=== PATIENT | male | born 1975 | race Caucasian/White ===

== ENCOUNTER 2017-10-01 15:50 | Observation (INO) | payer OTHER ==
[2017-10-01] MEDS ORDERED: ASPIRIN 325 MG TABLET PO ONE (15:55)
[2017-10-01] MEDS ORDERED: ASPIRIN 325 MG TABLET ONE (16:00)
--- NOTE | 2017-10-01 16:04 | PDOC ---
Rapid Medical Evaluation Time Seen by Provider: 10/01/17 15:52 Medical Evaluation: Allergies Allergy/AdvReac Type Severity Reaction Status Date / Time No Known Allergies Allergy Verified 10/01/17 15:52 10/01/17 15:53 I have performed a brief in-person evaluation of this patient. The patient presents with a chief complaint of: chest pain Pertinent physical exam findings: EKG with 2mm ST elevations noted in II, II and AVF, pronounced TWI noted in V1-V5 I have ordered the following:EKG, cardiac enzymes, cbc/cmp/coags,and ASA. Attending Luanne notified, pt immediately sent to the main ED. The patient will proceed to the ED for further evaluation. 10/01/17 15:56
--- NOTE | 2017-10-01 16:19 | PDOC ---
Attending Attestation - Resident Resident Name: Alma Haas - ED Attending Attestation I have performed the following: I have examined & evaluated the patient, The case was reviewed & discussed with the resident, I agree w/resident's findings & plan, Exceptions are as noted - HPI HPI: 10/01/17 16:18 42y M no pmhx sent by cardiology for evaluation of chest pain. Pt is new to Dr. Young, but saw deep TWI in the anterior/inferior leads, and sent the pt to the ED for evlauation. On arrival the pt had an EKG that showed the same changes, pt denies being in pain. 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 pt denies any diaphoresis, n/v. on arrival the pts EKG noted for deep TWI in anterior/lateral leads, read by machine as stemi, howver without any pain, and based on pts onrmal vitals/ clinical findings, suspect this may be LVH wiht strain patter rather than a STEMI. Case dw dr. Young - agree this is probably strain rather than stemi - posible underlying cardiomyopathy on exam pt well appearign in no distresss GENERAL: The patient is awake, alert, and fully oriented, Nontoxic - in no acute distress. HEAD: Normocephalic, atraumatic. EYES: extraocular movements intact, sclera anicteric, conjunctiva clear. ENT: Normal voice, Moist mucous membranes. NECK: Normal range of motion, supple LUNGS: Breath sounds equal, clear to auscultation bilaterally. No wheezes, no rhonchi, no rales. HEART: Regular rate and rhythm, normal S1 and S2 without murmur, rub or gallop. ABDOMEN: Soft, nontender, normoactive bowel sounds. No guarding, no rebound. . No CVA tenderness EXTREMITIES: Normal range of motion, no edema. No clubbing or cyanosis. No cords, erythema, or tenderness. NEUROLOGICAL: No facial assymetry, Normal speech, PSYCH: Normal mood, normal affect. SKIN: Warm, Dry, normal turgor, will plan for trops, obs/echo will give ASA - Physicial Exam PE: 10/05/17 07:57 se eabove - Medical Decision Making 10/05/17 07:57 se above Heart Score/ECG Review - ECG Impressions Comment:: 10/01/17 16:48 Twelve-lead EKG was performed and reviewed by me. There is normal sinus rhythm with a normal rate. Rate of 65 LVH with strain pattern qtc interval of 513 no old ekgs for comparison
[2017-10-01 16:23] LABS: HEMATOCRIT 47.2 % (35.4-49); HEMOGLOBIN 16.3 GM/dL (11.7-16.9); MCH 31.5 pg (25.7-33.7); MCHC 34.5 g/dl (32.0-35.9); MEAN CELL VOLUME 91.2 fl (80-96); MEAN PLT VOLUME 9.1 fl (7.5-11.1); PLATELET COUNT 229 K/MM3 (134-434); RBC 5.18 M/mm3 (4.00-5.60); RDW 12.7 % (11.9-15.9); WHITE BLOOD COUNT 7.9 K/mm3 (4.0-10.0)
--- NOTE | 2017-10-01 16:24 | PDOC ---
History of Present Illness - General Stated Complaint: ABNORMAL EKG Time Seen by Provider: 10/01/17 15:52 History Source: Patient, Care Provider Exam Limitations: No Limitations - History of Present Illness Initial Comments: This is a 42 YOM who p/w one month of intermittent substernal chest discomfort which feels like something is sitting on his chest and squeezing his chest. He currently has no pain and states that his most recent episode resolved around the time he arrived to the ED. He was being seen at his PCP's office (where he is just being established as a patient) and got an EKG which looked concerning, so the PCP sent him in to the ED. He denies any radiation to the shoulder, arm, neck, jaw, abdomen, or back. He also denies nausea, vomiting, SOB, diaphoresis, AMAYA, lightheadedness, or other symptoms. 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 Prior to this month, he had never had these symptoms before. Past History - Past Medical History Allergies/Adverse Reactions: Allergies Allergy/AdvReac Type Severity Reaction Status Date / Time No Known Allergies Allergy Verified 10/01/17 15:52 Home Medications: Ambulatory Orders NK [No Known Home Medication] 10/01/17 - Suicide/Smoking/Psychosocial Hx Smoking History: Unknown if ever smoked Review of Systems - Review of Systems Able to Perform ROS?: Yes Constitutional: No: Chills, Fever, Unexplained wgt Loss HEENTM: No: Nose Congestion, Throat Pain Respiratory: No: Cough, Shortness of Breath Cardiac (ROS): Yes: Chest Pain. No: Palpitations ABD/GI: No: Constipated, Diarrhea, Nausea, Vomiting : No: Burning, Dysuria Musculoskeletal: No: Back Pain, Neck Pain Integumentary: No: Bruising, Rash Neurological: No: Headache, Numbness, Tingling, Weakness, Dizziness Endocrine: No: Unexplained Weight Gain, Unexplained Weight Loss *Physical Exam - Vital Signs Last Vital Signs Temp Pulse Resp BP Pulse Ox 98.1 F 63 18 114/57 98 10/02/17 14:00 10/02/17 14:00 10/02/17 09:31 10/02/17 14:00 10/02/17 09:31 - Physical Exam General Appearance: Yes: Nourished, Appropriately Dressed, Other (nontoxic and well appearing adult male in no distress, appears comfortable, [place]an-speaking , answering questions appropriately). No: Apparent Distress HEENT: positive: EOMI, Normal Voice, Hearing Grossly Normal. negative: Scleral Icterus (R), Scleral Icterus (L), Nasal Congestion Neck: positive: Trachea midline, Supple. negative: Tender, Rigid Respiratory/Chest: positive: Lungs Clear, Normal Breath Sounds. negative: Respiratory Distress, Crackles, Rhonchi, Stridor, Wheezing Cardiovascular: positive: Regular Rhythm, Regular Rate. negative: Murmur Gastrointestinal/Abdominal: positive: Normal Bowel Sounds, Soft. negative: Tender, Organomegaly, Pulsatile Mass, Guarding Musculoskeletal: positive: Normal Inspection. negative: Decreased Range of Motion, Vertebral Tenderness Extremity: positive: Normal Capillary Refill, Normal Inspection, Normal Range of Motion. negative: Tender, Cyanosis Integumentary: positive: Normal Color, Dry, Warm. negative: Erythema, Rash, Bruising Neurologic: positive: bindery operator II-XII NML intact, Fully Oriented, Alert, Normal Mood/ Affect, Normal Response, Motor Strength 5/5 Heart Score/ECG Review - History History: Moderately suspicious - Electrocardiogram EKG: Significant ST-depression - Age Age: </= 45 - Risk Factors Based on the list above the patient has:: No risk factors known - Troponin Troponin: </= normal limit - Score Heart Score - Total: 3 #1 Sinus rhythm, rate of 65, normal axis, ST depressions in I, aVL, V5-V6, and biphasic ST-T changes in V1-V4, findings concerning for Wellen's syndrome versus early repolarization versus strain pattern, QTc is 513 (prolonged). ED Treatment Course - LABORATORY CBC & Chemistry Diagram: 10/01/17 16:00 10/01/17 16:00 - ADDITIONAL ORDERS Additional order review: 10/01/17 16:00 RBC 5.18 MCV 91.2 MCHC 34.5 RDW 12.7 MPV 9.1 - Medications Given in the ED: ED Medications Discontinued Medications Generic Name Dose Route Start Last Admin Trade Name Freq PRN Reason Stop Dose Admin Aspirin 325 mg 10/01/17 15:55 10/01/17 16:03 Asa - PO 10/01/17 15:56 325 mg ONCE ONE Administration Medical Decision Making - Medical Decision Making 10/01/17 17:26 Adult male Pt p/w chest pain. Initial Vital Signs Temp Pulse Resp BP Pulse Ox 98 F 64 16 125/74 98 10/01/17 15:53 10/01/17 15:53 10/01/17 15:53 10/01/17 15:53 10/01/17 15:53 Exam: Well appearing, nontoxic, comfortable, normal heart/lung/abdominal/neuro exams. DDX IBNLT: ACS, angina, cardiomyopathy, pericarditis, tamponade, aortic dissection, AAA, PTX, PE, esophageal tear, esophagitis (e.g. pill, infectious), esophageal stricture, esophageal FB, gastritis, PUD, pancreatitis, cholecystitis , cholangitis, colitis, bowel perforation, PNA/bronchitis, pleurisy, pleuritis, MVP, pulmonary HTN, musculoskeletal, panic/anxiety, etc. W/U ordered: CBCD CMP Mg Phos Lipase Troponin CK CKMB Coags T&S Blood gas UA UCx EKG CXR. TX ordered: monitor, ASA 324 EKG: As noted in ECG Review section. CXR: NADP Laboratory Tests 10/01/17 10/01/17 10/01/17 16:00 16:00 16:00 WBC 7.9 RBC 5.18 Hgb 16.3 Hct 47.2 MCV 91.2 MCH 31.5 MCHC 34.5 RDW 12.7 Plt Count 229 MPV 9.1 PT with INR 11.30 INR 1.00 Sodium 141 Potassium 3.9 Chloride 107 Carbon Dioxide 27 Anion Gap 7 L BUN 10 Creatinine 0.9 Creat Clearance w eGFR > 60 Random Glucose 95 Calcium 8.7 Creatine Kinase 117 Troponin I < 0.02 Reassessment: Benign; patient continues to feel well. The Pt is unsafe for discharge at this time. They require further hospital observation, workup, and treatment. Microblog sent to [facility] for admission. Spoke with Yuejeison, in agreement Pt to be admitted to to: Telemetry Decision to Admit order placed to covering attending Consult order placed to cardiology on-call provider. *DC/Admit/Observation/Transfer Diagnosis at time of Disposition: Abnormal EKG Chest pain Qualifiers: Chest pain type: unspecified Qualified Code(s): R07.9 - Chest pain, unspecified - Discharge Dispostion Condition at time of disposition: Guarded Decision to Admit order: Yes - Referrals - Patient Instructions - Post Discharge Activity
[2017-10-01 16:46] LABS: PROTHROMBIN TIME (PATIENT) 11.3 SEC (9.7-13.0)
[2017-10-01 16:56] LABS: ANION GAP 7 (8-16); BLOOD UREA NITROGEN 10 mg/dL (7-18); CALCIUM 8.7 mg/dL (8.5-10.1); CHLORIDE 107 mmol/L (98-107); CO2 27 mmol/L (21-32); CREATININE 0.9 mg/dL (0.7-1.3); GLUCOSE,RANDOM 95 mg/dL (74-106); POTASSIUM 3.9 mmol/L (3.5-5.1); SODIUM 141 mmol/L (136-145)
--- NOTE | 2017-10-01 19:06 | PN ---
Progress Note (short form) - Note Progress Note: I sent Mr. Cardenas to ER for further evaluation. He is a 42 M with no PMH who walked into my office to be evaluated for 2 weeks of exertional dyspnea with associated palpitations. His ECG (no prior for comparison) was markedly abnl w/ TWI across precordium, I , avL. He was chest pain free. Suspect possible cardiomyopathy, r/o arrhythmia. Possible ischemia, though unlikely given age and no risk factors. 1. Tele, Aspirin 2. Echo 3. Cardiac enzymes. 4. Ischemic evaluation prior to discharge. A full office consult was written; I will see him in follow up tomorrow.
--- NOTE | 2017-10-01 22:16 | HP ---
Admitting History and Physical - Primary Care Physician PCP: Chente Jaramillo - Admission Chief Complaint: abnormal ekg History of Present Illness: 42y M no pmhx sent by cardiology for evaluation of chest pain. Pt is new to Dr. Young, but saw deep TWI in the anterior/inferior leads, and sent the pt to the ED for evlauation. On arrival the pt had an EKG that showed the same changes, pt denies being in pain. 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 pt denies any diaphoresis, n/v. - Smoking History Smoking history: Unknown if ever smoked Home Medications - Allergies Allergies/Adverse Reactions: Allergies Allergy/AdvReac Type Severity Reaction Status Date / Time No Known Allergies Allergy Verified 10/01/17 15:52 - Home Medications Home Medications: Ambulatory Orders NK [No Known Home Medication] 10/01/17 Physical Examination Vital Signs: Vital Signs Temperature 98.2 F 10/01/17 19:45 Pulse Rate 89 10/01/17 19:45 Respiratory Rate 19 10/01/17 19:45 Blood Pressure 126/78 10/01/17 19:45 O2 Sat by Pulse Oximetry (%) 98 10/01/17 18:49 Constitutional: Yes: No Distress HENT: Yes: Atraumatic Neck: Yes: Supple Cardiovascular: Yes: Regular Rate and Rhythm Respiratory: Yes: CTA Bilaterally Gastrointestinal: Yes: Normal Bowel Sounds Extremities: Yes: WNL Edema: No Peripheral Pulses WNL: Yes Neurological: Yes: Alert, Oriented Labs: CBC, BMP 10/01/17 16:00 10/01/17 16:00 Problem List - Problems (1) Abnormal EKG Assessment/Plan: tele monitoring fu cardiac enzymes repeat ekg in am if needed Code(s): R94.31 - ABNORMAL ELECTROCARDIOGRAM [ECG] [EKG] (2) Chest pain Assessment/Plan: not currently fu cardiac enzymes cardiologuy on board echo stress test Code(s): R07.9 - CHEST PAIN, UNSPECIFIED Qualifiers: Chest pain type: unspecified Qualified Code(s): R07.9 - Chest pain, unspecified Assessment/Plan Laboratory Tests 10/01/17 10/01/17 10/01/17 16:00 16:00 16:00 WBC 7.9 RBC 5.18 Hgb 16.3 Hct 47.2 MCV 91.2 MCH 31.5 MCHC 34.5 RDW 12.7 Plt Count 229 MPV 9.1 PT with INR 11.30 INR 1.00 Sodium 141 Potassium 3.9 Chloride 107 Carbon Dioxide 27 Anion Gap 7 L BUN 10 Creatinine 0.9 Creat Clearance w eGFR > 60 Random Glucose 95 Calcium 8.7 Creatine Kinase 117 Troponin I < 0.02 10/01/17 20:35 WBC RBC Hgb Hct MCV MCH MCHC RDW Plt Count MPV PT with INR INR Sodium Potassium Chloride Carbon Dioxide Anion Gap BUN Creatinine Creat Clearance w eGFR Random Glucose Calcium Creatine Kinase 92 Troponin I < 0.02 Active Medications Generic Name Dose Route Start Last Admin Trade Name Freq PRN Reason Stop Dose Admin Aspirin 81 mg 10/02/17 10:00 Asa - PO DAILY ROSALIA
[2017-10-01 23:16] VITALS: BMI 25.4
--- NOTE | 2017-10-02 08:01 | PN ---
Progress Note, Physician Chief Complaint: Seen and examined, no acute distress TnI negative x 3 Tele: Sinus, sinus martin with NSST changes Denies CP or SOB - Current Medication List Current Medications: Active Medications Aspirin (Asa -) 81 mg PO DAILY ROSALIA - Objective Vital Signs: Vital Signs Temperature 98.4 F 10/02/17 05:49 Pulse Rate 57 L 10/02/17 05:49 Respiratory Rate 18 10/02/17 05:49 Blood Pressure 108/49 10/02/17 05:49 O2 Sat by Pulse Oximetry (%) 98 10/01/17 18:49 Constitutional: Yes: No Distress Eyes: Yes: Conjunctiva Clear Cardiovascular: Yes: Regular Rate and Rhythm Respiratory: Yes: CTA Bilaterally Gastrointestinal: Yes: Soft Edema: No Neurological: Yes: Alert, Oriented ...Motor Strength: WNL Labs: CBC, BMP 10/01/17 16:00 10/01/17 16:00 INR, PTT INR 1.00 (0.82-1.09) 10/01/17 16:00 - ....Imaging EKG: Image Reviewed Assessment/Plan IMP: CAZARES with associated palpitations x 2 weeks Markedly abnl baseline ECG The differential dx includes primary cardiomyopathy w/ associated arrhythmia; chronic cardiomyopathy with elevated EDP causing CAZARES; primary arrhythmia with or without associated cardiomyopathy, myocarditis unlikely and lastly ischemia also less likely give young age and lack of risk factors. Rare entities such as anomalous coronary artery and myocardial bridge should be considered. REC: 1. ASA 2. Echo today for EF assessment 3. Tele 4. Stress MIBI (pharm) prior to d/c
[2017-10-02] MEDS: ASPIRIN 81 MG CHEWABLE TABLETS PO SCH (11:56)
--- NOTE | 2017-10-02 16:15 | PN ---
Progress Note, Physician History of Present Illness: no cp - Current Medication List Current Medications: Active Medications Aspirin (Asa -) 81 mg PO DAILY ROSALIA Last Admin: 10/02/17 11:56 Dose: 81 mg - Objective Vital Signs: Vital Signs Temperature 98.1 F 10/02/17 14:00 Pulse Rate 63 10/02/17 14:00 Respiratory Rate 18 10/02/17 09:31 Blood Pressure 114/57 10/02/17 14:00 O2 Sat by Pulse Oximetry (%) 98 10/02/17 09:31 Constitutional: Yes: No Distress HENT: Yes: Atraumatic Neck: Yes: Supple Cardiovascular: Yes: Regular Rate and Rhythm Respiratory: Yes: CTA Bilaterally Gastrointestinal: Yes: Normal Bowel Sounds Extremities: Yes: WNL Neurological: Yes: Alert, Oriented Labs: CBC, BMP 10/01/17 16:00 10/01/17 16:00 INR, PTT INR 1.00 (0.82-1.09) 10/01/17 16:00 Problem List - Problems (1) Abnormal EKG Assessment/Plan: troponins negative echo done for stress mibi sandi Code(s): R94.31 - ABNORMAL ELECTROCARDIOGRAM [ECG] [EKG] (2) Chest pain Assessment/Plan: not currently fu cardiac enzymes cardiologuy on board echo stress test Code(s): R07.9 - CHEST PAIN, UNSPECIFIED Qualifiers: Chest pain type: unspecified Qualified Code(s): R07.9 - Chest pain, unspecified
--- NOTE | 2017-10-03 08:12 | PN ---
Progress Note, Physician Chief Complaint: Echo with mild diastolic dysfx otherwise normal TELE: NSR, NSST changes. No arrhythmias - Current Medication List Current Medications: Active Medications Aspirin (Asa -) 81 mg PO DAILY ROSALIA Last Admin: 10/02/17 11:56 Dose: 81 mg - Objective Vital Signs: Vital Signs Temperature 98.1 F 10/03/17 06:00 Pulse Rate 64 10/03/17 06:00 Respiratory Rate 20 10/03/17 06:00 Blood Pressure 100/54 10/03/17 06:00 O2 Sat by Pulse Oximetry (%) 98 10/02/17 21:00 Constitutional: Yes: No Distress, Calm Eyes: Yes: Conjunctiva Clear Cardiovascular: Yes: Regular Rate and Rhythm Respiratory: Yes: CTA Bilaterally Gastrointestinal: Yes: Soft Edema: No Neurological: Yes: Alert, Oriented ...Motor Strength: WNL Labs: CBC, BMP 10/01/17 16:00 10/01/17 16:00 INR, PTT INR 1.00 (0.82-1.09) 10/01/17 16:00 - ....Imaging EKG: Image Reviewed Assessment/Plan IMP: CAZARES with associated palpitations x 2 weeks Markedly abnl baseline ECG REC: 1. ASA 2. Echo w/ normal EF, no evidence of ARVD or non-compaction. 3. Tele unrevealing thus far 4. Stress MIBI (pharm) prior to d/c- to be completed today.
[2017-10-03] MEDS ORDERED: REGADENOSON 0.4 MG/5 ML PRE-FILLED SYRINGE IVPUSH ONE ×2 (09:42→10:00)
[2017-10-03] MEDS: ASPIRIN 81 MG CHEWABLE TABLETS PO SCH (12:39)
--- NOTE | 2017-10-03 13:05 | EKG ---
Test Reason : Blood Pressure : / mmHG Vent. Rate : 065 BPM Atrial Rate : 065 BPM P-R Int : 158 ms QRS Dur : 102 ms QT Int : 494 ms P-R-T Axes : 012 -22 132 degrees QTc Int : 513 ms NORMAL SINUS RHYTHM ST ELEVATION CONSIDER INFERIOR INJURY OR ACUTE INFARCT PROLONGED QT ACUTE PA / STEMI Consider right ventricular involvement in acute inferior infarct ABNORMAL ECG WHEN COMPARED WITH ECG OF 01-OCT-2017 16:01, NO SIGNIFICANT CHANGE WAS FOUND Confirmed by LORRAINE SOUTH, THOMPSON ([id number]) on 10/03/2017 1:04:57 PM Referred By: Confirmed By:THOMPSON PETERS MD
--- NOTE | 2017-10-03 17:06 | PN ---
Progress Note, Physician History of Present Illness: no cp - Current Medication List Current Medications: Active Medications Aspirin (Asa -) 81 mg PO DAILY ROSALIA Last Admin: 10/03/17 12:39 Dose: 81 mg - Objective Vital Signs: Vital Signs Temperature 98.0 F 10/03/17 14:00 Pulse Rate 75 10/03/17 14:00 Respiratory Rate 18 10/03/17 10:00 Blood Pressure 117/47 10/03/17 14:00 O2 Sat by Pulse Oximetry (%) 99 10/03/17 10:00 Constitutional: Yes: No Distress HENT: Yes: Atraumatic Neck: Yes: Supple Cardiovascular: Yes: Regular Rate and Rhythm Respiratory: Yes: CTA Bilaterally Gastrointestinal: Yes: Normal Bowel Sounds Extremities: Yes: WNL Neurological: Yes: Alert, Oriented Labs: CBC, BMP 10/01/17 16:00 10/01/17 16:00 INR, PTT INR 1.00 (0.82-1.09) 10/01/17 16:00 Problem List - Problems (1) Abnormal EKG Assessment/Plan: troponins negative echo done stress test done, report reviewed plan per cardiology Code(s): R94.31 - ABNORMAL ELECTROCARDIOGRAM [ECG] [EKG] (2) Chest pain Assessment/Plan: resolved Code(s): R07.9 - CHEST PAIN, UNSPECIFIED Qualifiers: Chest pain type: unspecified Qualified Code(s): R07.9 - Chest pain, unspecified
--- NOTE | 2017-10-04 08:14 | PN ---
Progress Note, Physician Chief Complaint: Nuclear stress with no ischemia but low normal EF and borderline TID ratio. As patient has exertional symptoms of CAZARES and chest burning, he needs further diagnostic studies to rule out ischemia or other coronary anomaly - Current Medication List Current Medications: Active Medications Aspirin (Asa -) 81 mg PO DAILY ROSALIA Last Admin: 10/03/17 12:39 Dose: 81 mg - Objective Vital Signs: Vital Signs Temperature 98 F 10/04/17 05:00 Pulse Rate 64 10/04/17 05:00 Respiratory Rate 18 10/04/17 05:00 Blood Pressure 105/44 10/04/17 05:00 O2 Sat by Pulse Oximetry (%) 96 10/03/17 21:00 Constitutional: Yes: No Distress Eyes: Yes: Conjunctiva Clear Cardiovascular: Yes: Regular Rate and Rhythm Respiratory: Yes: CTA Bilaterally Gastrointestinal: Yes: Soft Edema: No Neurological: Yes: Alert, Oriented ...Motor Strength: WNL Labs: CBC, BMP 10/01/17 16:00 10/01/17 16:00 INR, PTT INR 1.00 (0.82-1.09) 10/01/17 16:00 - ....Imaging EKG: Image Reviewed Assessment/Plan IMP: CAZARES with associated palpitations x 2 weeks Markedly abnl baseline ECG, diastolic dysfx, nuclear stress with TID (borderline ) and low-nl post stress EF REC: With borderline TID (raising ? of balanced ischemia or LM disease) and his exertional sx needs additional diagnostic studies to r/o ischemia (which seems unlikely) or rare congenital issues (coronary anomaly or significant myocardial bridge). These additional diagnostic studies cannot be performed at [facility]. Have recommended transfer to tertiary care center. Discussed in Romanian with patient in detail- he understands my recommendations. Agrees to further work up as outlined. Plan for transfer to tertiary center.
[2017-10-04] MEDS: ASPIRIN 81 MG CHEWABLE TABLETS PO SCH (11:21)
[2017-10-04 11:42] VITALS: BP 102/55; PULSE 63; TEMP 98.4
--- NOTE | 2017-10-04 15:58 | DS ---
Physical Examination Vital Signs: Vital Signs Temperature 98.4 F 10/04/17 10:00 Pulse Rate 63 10/04/17 10:00 Respiratory Rate 18 10/04/17 10:00 Blood Pressure 102/55 10/04/17 10:00 O2 Sat by Pulse Oximetry (%) 98 10/04/17 10:00 Constitutional: Yes: No Distress HENT: Yes: Atraumatic Neck: Yes: Supple Cardiovascular: Yes: Regular Rate and Rhythm Respiratory: Yes: CTA Bilaterally Gastrointestinal: Yes: Normal Bowel Sounds Extremities: Yes: WNL Neurological: Yes: Alert, Oriented Labs: CBC, BMP 10/01/17 16:00 10/01/17 16:00 Discharge Summary Reason For Visit: ABNORMAL ELECTROCARDIOGRAPHY; CHEST PAIN Condition: Guarded - Instructions Disposition: TRANSFER ACUTE CARE/OTHER HOSP - Home Medications Comprehensive Discharge Medication List: Ambulatory Orders NK [No Known Home Medication] 10/01/17 dc to tertiary care for further studies
== END 2017-10-04 14:15 | disposition short-term general hospital (02) ==
LOC: JER 15:50 → JERBED 17:50 → J4W 21:32
PROVIDERS: ADMIT Internal Medicine; ATTEND Internal Medicine
PROC: 3E033GC Introduction of Other Therapeutic Substance into Peripheral Vein, Percutaneous Approach (ICD-10-PCS; principal; 2017-10-01)
DX: R94.31 Abnormal electrocardiogram [ECG] [EKG] (principal); R07.9 Chest pain, unspecified
CPT/HCPCS: 36415; 78452-TC; 80048; 80061; 82550; 83721; 84443; 84484; 85027; 85610; 93005; 93010; 93017; 93306-TC; 96374; 99285-25; A9502; G0378; J2785